=== PATIENT | male | born 1970 | race Caucasian/White ===

== ENCOUNTER 2018-07-06 14:49 | Emergency (ER) | payer OTHER ==
[~2018-07-06] VITALS: Ht 177.8 cm; Wt 113.0 kg
[2018-07-06 15:12] LABS: ABSOLUTE BASOPHILS 0.1 thou/uL (0.0-0.2); ABSOLUTE LYMPHOCYTES 1.7 thou/uL (0.8-5.3); ABSOLUTE MONOCYTES 0.5 thou/uL (0.0-1.2); ABSOLUTE NEUTROPHILS 6.5 thou/uL (1.6-8.1); BASOPHILS 1.1 %; EOSINOPHILS 0.2 %; HEMATOCRIT 47.4 % (42.0-52.0); HEMOGLOBIN 16.3 gm/dL (14.0-18.0); LYMPHOCYTES 19.1 %; MCH 29.7 pg (26.0-34.0); MCHC 34.4 g/dL (28.0-37.0); MCV 86.3 fL (80.0-100.0); MONOCYTES 5.2 %; MPV 8.7 fl. (7.2-11.1); NUCLEATED RBCS 0 /100WBC; PLATELET COUNT* 237 thou/uL (150-400); POLYS 74.4 %; RBC 5.49 mil/uL (4.50-6.00); RDW-CV 13.8 % (10.5-14.5); WBC 8.7 thou/uL (4.0-11.0)
[2018-07-06 15:19] LABS: ANION GAP 5 mmol/L (7-16); BUN 15 mg/dL (7-18); CALCIUM 9.5 mg/dL (8.5-10.1); CHLORIDE 102 mmol/L (98-107); CO2 30 mmol/L (21-32); CREATININE 1.1 mg/dL (0.6-1.3); GLUCOSE 107 mg/dL (70-99); POTASSIUM 4.1 mmol/L (3.5-5.1); SODIUM 137 mmol/L (136-145)
[2018-07-06 15:21] LABS: APTT 29.3 Seconds (25.0-31.3); PROTIME 10.3 Seconds (9.20-11.50)
[2018-07-06 15:38] LABS: ALBUMIN 4.1 g/dL (3.4-5.0); ALKALINE PHOSPHATASE 93 U/L (46-116); CK-MB MASS 1.3 ng/mL (<0.5-3.6); LIPASE 106 U/L (73-393); MAGNESIUM 1.8 mg/dL (1.8-2.4); NT-PRO BRAIN NAT PEPTIDE 9 pg/mL (<300); SGOT 14 U/L (15-37); SGPT 34 U/L (30-65); TOTAL BILIRUBIN 0.4 mg/dL (<0.1-1.0); TOTAL PROTEIN 7.8 g/dL (6.4-8.2); TROPONIN-I LEVEL <0.06 ng/mL (<0.06)
[2018-07-06 16:04] VITALS: BP 114/70
--- NOTE | 2018-07-07 15:27 | EKG ---
[place] [address] ELECTROCARDIOGRAM REPORT Name: TEETEE ALFRED [id number] Admission: 07/06/18 Attend Phys: Discharge: 07/06/18 Date of : 72 Report #: [id number] THIS REPORT FOR: //name// [facility] ED Test Date: 2018-07-06 Test Time: 14:55:28 Pat Name: TEETEE ALFRED Department: Room: Gender: M [employer]: SHELIA : 1970 Requested By: Ashish Hannah Order Number: [id number] MD: Júnior Argueta Measurements Intervals [place] Rate: 89 P: 28 VT: 153 QRS: 24 QRSD: 95 T: 4 QT: 350 QTc: 426 Interpretive Statements Sinus rhythm No previous ECG available for comparison Electronically Signed On 07-07-2018 15:27:01 [employer] by Júnior Argueta [email or web address] <ELECTRONICALLY SIGNED> By: Júniro Argueta MD, [facility] 07/07/18 1527 1455 1455 Júnior Argueta MD, FACC /EPI
== END 2018-07-06 16:05 | disposition home or self-care (01) ==
LOC: M.ERS 14:49
PROVIDERS: Family Medicine
DX: R07.89 Other chest pain (principal)